=== PATIENT | male | born 1935 | race Caucasian/White ===

== ENCOUNTER 2017-01-09 07:31 | Day surgery (SDC) | payer MEDICARE, OTHER ==
--- NOTE | ~2017-01-09 | OP ---
Record Of Operation [facility] [address] [place]. [address] NAME: SARAH BETH LUGO : 39 STATUS : REG [facility] [place] PAT#: [id number] AGE: 81 ADM/REG DATE : 01/09/17 MR#: [id number] REPORT SERV DATE: 01/09/17 DICTATED BY: INDRA BEY DATE: 01/09/17 REPORT STATUS : Draft TRANSCRIBED BY: MODL DATE: 01/09/17 DATE OF PROCEDURE: PROCEDURES PERFORMED: Fiberoptic bronchoscopy, bronchoscopy with bronchoalveolar lavage, and transbronchial lung biopsies of single lobe. INDICATION: History of lung cancer, status post treatment with focal abnormality on PET scan. DESCRIPTION OF PROCEDURE: After risks and benefits were explained, informed consent was obtained. The patient received anesthesia under the care of Anesthesiology with placement of an LMA artificial airway. The entire bronchial tree was inspected. The patient had some changes of chronic bronchitis. The right bronchial tree was within normal limits with some thin secretions but no endobronchial abnormalities. The left bronchial tree was more hyperemic, and the left lower lobe was abnormal with the takeoff of the superior segment and part of the basal segments as a three-way split that was very hyperemic with some retraction, some scarring, and significant narrowing of the three components of the airway. Following airway inspection, we wedged the bronchoscope in that area, instilled saline, and aspirated back into a Lukens trap for bronchoalveolar lavage, and then under fluoroscopic guidance which was documented on a printout, we performed transbronchial biopsies and endobronchial biopsies in the left lower lobe with primary attention to the superior segment. IMPRESSION: History of lung cancer with abnormal CT scan of the chest, chronic bronchitis, abnormal airways consistent with prior treatment for lung cancer. JENNIFER/ANAIS Indra Bye M.D. / [id number] CC: Annamarie Morelos M.D.
[~2017-01-09 07:31] MED LIST: ACTOS30 PO; AMARYL1 MG PO; ASA5GR PO; GLUCPH PO; JANUVIA100 MG PO; L20 PO; LIPITOR20 PO; MULTIPLE VIT PO; PRESERVISION A1 EAC1 PO; PRIN10 PO; SYN.15 PO; TOPXL50 PO
[2017-01-09 07:59] LABS: BUN (BLOOD UREA NITROGEN) 17 MG/DL (6-23); CALCIUM, SERUM 9.5 MG/DL (8.5-10.4); CHLORIDE, SERUM 103 MMOL/L (96-112); CO2 (CARBON DIOXIDE) 34 MMOL/L (24-34); CREATININE 1.01 MG/DL (0.70-1.30); GFR AFRICAN AMERICAN 82 ML/MIN (>=60); GFR NON AFRICAN AMERICAN 70 ML/MIN (>=60); GLUCOSE, SERUM 199 MG/DL (60-99); POTASSIUM, SERUM 4.1 MMOL/L (3.5-5.3); SODIUM, SERUM 141 MMOL/L (135-148)
[2017-01-09 14:37] LABS: BD FL LYMPH (NOT ORD) 12 %; BD FL SOURCE (NOT ORD) BAL; BF BASO (NOT OF) 0 %; BF LARGE MONONUCLEAR 86 %; BF TOTAL CELL CT (NOT ORD 188 /MM3; BODY FLUID EOS (NOT ORD) 0 %; BODY FLUID RBC (NOT ORD) 1000 /MM3; BODY FLUID SEG (NOT ORD) 2 %
== END 2017-01-09 23:59 | disposition home or self-care (01) ==
LOC: DMU 07:31
PROVIDERS: Anesthesiology; Internal Medicine Pulmonary Disease
PROC: 0BBJ8ZX Excision of Left Lower Lung Lobe, Via Natural or Artificial Opening Endoscopic, Diagnostic (ICD-10-PCS; 2017-01-09)
PROC: 0B9J8ZX Drainage of Left Lower Lung Lobe, Via Natural or Artificial Opening Endoscopic, Diagnostic (ICD-10-PCS; principal; 2017-01-09 09:00)
DX: J43.9 Emphysema, unspecified (principal); J98.4 Other disorders of lung; I25.2 Old myocardial infarction; I73.9 Peripheral vascular disease, unspecified; E78.00 Pure hypercholesterolemia, unspecified; Z90.49 Acquired absence of other specified parts of digestive tract; Z90.89 Acquired absence of other organs; Z98.49 Cataract extraction status, unspecified eye; Z87.891 Personal history of nicotine dependence; Z95.1 Presence of aortocoronary bypass graft
CPT/HCPCS: 71010; 80048; 87015; 87070; 87102; 87107; 87116; 87205; 88112; 88305; 89051; 93005; J2405